=== PATIENT | female | born 2000 | race Caucasian/White ===

== ENCOUNTER 2021-04-08 12:58 | Emergency (ER) | payer OTHER ==
[2021-04-08 13:03] VITALS: BP 128/81; PULSE 80; TEMP 98.6
[2021-04-08] MEDS ORDERED: LIDOCAINE 5% TOPICAL PATCH TP ONE (13:52)
[2021-04-08] MEDS ORDERED: LIDOCAINE 5% TOPICAL PATCH ONE (14:01)
[2021-04-08] MEDS ORDERED: LIDOCAINE PATCH REMOVAL MC ONE (22:00)
== END 2021-04-08 16:25 ==
LOC: JER 12:58
DX: S06.0X0A Concussion without loss of consciousness, initial encounter (principal); V89.2XXA Person injured in unspecified motor-vehicle accident, traffic, initial encounter; Y92.9 Unspecified place or not applicable
CPT/HCPCS: 70450-TC; 72125-TC; 84703; 99284-25